=== PATIENT | female | born 1985 | race Caucasian/White ===

== ENCOUNTER 2025-04-14 13:06 | Emergency (ER) | payer BC ==
[2025-04-14] MEDS ORDERED: Sodium Chloride 0.9% 10 ML Syringe FLUSH PRN (13:11)
[2025-04-14] MEDS: Iopamidol 612 MG/ML 100 ML Bottle IVPUSH ONE (13:17)
[2025-04-14 13:20] LABS: BASOPHILS ABSOLUTE AUTO 0.0 x10^3/uL (0.0-0.2); BASOPHILS PERCENT AUTO 0.3 % (0.2-1.2); EOSINOPHILS ABSOLUTE AUTO 0.0 x10^3/uL (0.0-0.5); EOSINOPHILS PERCENT AUTO 0.0 % (0.0-4.0); IMMATURE GRAN ABSOLUTE AUTO 0.01 x10^3/uL (0.00-0.07); IMMATURE GRAN PERCENT AUTO 0.10 % (0.00-0.43); LYMPHOCYTES ABSOLUTE AUTO 0.7 x10^3/uL (1.0-4.8); LYMPHOCYTES PERCENT AUTO 9.5 % (25.0-50.0); MONOCYTES ABSOLUTE AUTO 0.1 x10^3/uL (0.0-0.8); MONOCYTES PERCENT AUTO 1.3 % (2.0-11.0); NEUTROPHILS ABSOLUTE AUTO 6.4 x10^3/uL (1.8-7.7); NEUTROPHILS PERCENT AUTO 88.8 % (50.0-80.0); PLATELET COUNT,PLT 282 x10^3/uL (130-400); RED BLOOD CELL COUNT 5.30 x10^6/uL (4.00-5.50); WHITE BLOOD CELL COUNT,WBC 7.2 x10^3/uL (4.0-10.0)
[2025-04-14] MEDS: Ondansetron 4 MG/2 ML SDV IVPUSH PRN (13:23)
[2025-04-14 13:35] LABS: INR 1.0 (0.9-1.1)
[2025-04-14] MEDS: Prochlorperazine 10 MG/2 ML SDV IV PRN (13:38)
[2025-04-14 13:40] LABS: A/G RATIO 1.15; ALANINE AMINOTRANSFERASE,ALT 10 U/L (14-59); ASPARTATE AMNIOTRANSFERASE,AST 12 U/L (15-37); BILIRUBIN TOTAL 2.5 mg/dL (0.2-1.0); BLOOD UREA NITROGEN,BUN 13 mg/dL (7-18); CARBON DIOXIDE,CO2 19 mmol/L (21-32); CHLORIDE,CL 105 mmol/L (98-107); CREATININE 0.8 mg/dL (0.55-1.02); GLUCOSE RANDOM 132 mg/dL (70-99); POTASSIUM,K 3.5 mmol/L (3.5-5.1); PROTEIN TOTAL,TP 7.3 g/dL (6.4-8.2); SODIUM,NA 140 mmol/L (136-145)
[2025-04-14 13:41] LABS: ESTIMATED GFR 96 mL/min (>=60)
[2025-04-14] MEDS: Aluminum Hydroxide/Magnesium Hydroxide/Simethicone Susp 30 ML Cup PO ONE (13:48)
[2025-04-14] MEDS: Lidocaine 2% Viscous Solution 15 ML UD PO ONE (13:48)
[2025-04-14 15:26] VITALS: BP 109/65; PULSE 87
[2025-04-14] MEDS: Take Home: Ondansetron 4 MG Tab.DIS, 5 Tab Pack PO ONE (15:42)
== END 2025-04-14 15:34 | disposition home or self-care (01) ==
LOC: VM.ED 13:06
DX: K52.9 Noninfective gastroenteritis and colitis, unspecified (principal); F17.210 Nicotine dependence, cigarettes, uncomplicated; Z88.8 Allergy status to other drugs, medicaments and biological substances
CPT/HCPCS: 74176; 80053; 83690; 83735; 85025; 85610; 86140; 96361; 96374; 96375; 99284; 99285; A9270; J0780; J2405; J2470; J3490; J7030; Q0162